=== PATIENT | male | born 1965 | race Hispanic/Latino ===

== ENCOUNTER 2020-06-21 05:51 | Day surgery (SDC) | payer OTHER ==
[2020-06-19 11:06] LABS: BASOPHILS % (AUTO) 1.2 % (0.0-5.0); EOSINOPHILS % (AUTO) 3.4 % (0.0-8.0); HEMATOCRIT 43.2 % (42-54); LYMPHOCYTES % (AUTO) 21.4 % (21.0-51.0); MEAN CORPUSCULAR HEMOGLOBIN 29.8 pg (27.0-33.0); MEAN CORPUSCULAR VOLUME 85.4 fL (79-99); MONOCYTES % (AUTO) 9.7 % (3.0-13.0); PLATELET COUNT (AUTO) 204 K/uL (130-400); RED BLOOD CELL COUNT(AUTO) 5.06 MIL/uL (4.50-6.20); RED CELL DISTRIBUTION WIDTH 13.1 % (11.0-15.5); WHITE BLOOD COUNT (AUTO) 5.9 K/uL (4.8-10.8)
[2020-06-19 11:15] LABS: APPEARANCE,URINE Cloudy (CLEAR); BILIRUBIN,URINE Negative (NEGATIVE); COLOR,URINE Yellow (YELLOW); GLUCOSE, URINE (UA) Negative (NEGATIVE); KETONES,URINE Negative (NEGATIVE); LEUKOCYTE ESTERASE ,URINE Negative (NEGATIVE); NITRATE,URINE Negative (NEGATIVE); OCCULT BLOOD,URINE Negative (NEGATIVE); PROTEIN,URINE Negative (NEGATIVE); UROBILINOGEN,URINE 0.2 mg/dL (0.2-1.0)
[2020-06-19 11:17] LABS: POTASSIUM 4.4 mmol/L (3.5-5.1)
[2020-06-19 11:18] LABS: INR 1.02 (0.85-1.15); PROTHROMBIN TIME 11.1 SEC (9.6-11.6)
[2020-06-19 11:20] LABS: PARTIAL THROMBOPLASTIN TIME 29.4 SEC (26.3-35.5)
[2020-06-19 11:27] LABS: BACTERIA,URINE None Seen /HPF (None Seen); RBC,URINE 0-1 /HPF (0-1); SQUAMOUS EPITHELIAL CELL,UR 0-2 /HPF (0-2); WBC,URINE None Seen /HPF (0-1)
[2020-06-20 09:14] VITALS: BP 136/77
[~2020-06-21] VITALS: Ht 167.6 cm; Wt 83.7 kg
[2020-06-21] VITALS (11 sets, daily range): BP systolic 100–142; BP diastolic 62–72
[~2020-06-21 05:51] MED LIST: ALBU8.5H8 IH; AMLO-258 PO; ASPI-1197 PO; CLOP75TA32 PO; ISOS30TA92 PO; LOSA50TA64 PO; MONT-39 PO; ROSU40TA21 PO
[2020-06-21] MEDS ORDERED: 0.9%NACL 1000ML 1,000 ML IV ONE (06:21)
[2020-06-21] MEDS ORDERED: SODIUM BICARB 50MEQ 50ML VIAL 50 ML ONE (07:12)
[2020-06-21] MEDS ORDERED: HEPARIN 10,000 UNIT/10ML (1,000 UNIT/ML) VIAL ONE (07:13)
[2020-06-21] MEDS ORDERED: IOHEXOL-350 50ML VIAL IV ONE (07:13)
[2020-06-21] MEDS ORDERED: MEPERIDINE-PF 25 MG/ML SYG ONE ×2 (07:13→07:52)
[2020-06-21] MEDS ORDERED: IOHEXOL 350 MG/ML 100ML INFUS..BTL IV ONE (07:13)
[2020-06-21] MEDS ORDERED: NITROGLYCERIN 2 MG VIAL IV ONE (07:13)
[2020-06-21] MEDS ORDERED: MIDAZOLAM HCL 1 MG/ML 2ML VIAL ONE ×2 (07:14→07:52)
[2020-06-21] MEDS ORDERED: LIDOCAINE HCL 400MG/20ML VIAL ONE (07:14)
[2020-06-21] MEDS ORDERED: NICARDIPINE 25MG INJ IV ONE (07:18)
[2020-06-21] MEDS ORDERED: 0.9%NACL 1000ML 1,000 ML IV SCH (08:45)
== END 2020-06-21 13:10 ==
LOC: DAH 05:51
PROVIDERS: ATTEND Internal Medicine Cardiovascular Disease
DX: I25.119 Atherosclerotic heart disease of native coronary artery with unspecified angina pectoris (principal); I25.2 Old myocardial infarction; Z95.5 Presence of coronary angioplasty implant and graft; G47.33 Obstructive sleep apnea (adult) (pediatric); Z99.89 Dependence on other enabling machines and devices; Z79.82 Long term (current) use of aspirin; Z79.01 Long term (current) use of anticoagulants; Z79.899 Other long term (current) drug therapy
CPT/HCPCS: 36415; 71045; 80048; 81001; 85025; 85610; 85730; 93005; 93458; A4215; A4216; A4221; A4222; A4223 ×3; A4606; A4663; C1769; C1894; J1644 ×2; J2175 ×2; J2250 ×2; J3490 ×4; J7030; Q9965; Q9967 ×2; 99156; 99157